=== PATIENT | female | born 1985 | race African-American/Black ===

== ENCOUNTER 2017-02-20 12:53 | Emergency (ER) | payer OTHER ==
[2017-02-20 13:42] LABS: #Basophils 0.1 thou/uL (0.0-0.2); #Eosinphils 0.1 thou/uL (0.0-0.7); #Lymphocytes 1.8 thou/uL (1.20-3.40); #Monocytes 0.3 thou/uL (0.11-0.59); #Neutrophils 2.8 thou/uL (1.40-6.50); %Basophils 1.4 % (0.0-1.0); %Eosinophils 1.8 % (0.0-10.0); %Lymphocytes 35.3 % (21.0-51.0); %Monocytes 6.8 % (0.0-10.0); Hematocrit 37.3 % (36.0-47.0); Mean Platelet Volume 7.8 fL (7.4-10.4); Red Blood Cell (RBC) Count 3.71 mill/uL (4.20-5.40)
[2017-02-20 14:05] LABS: ALT (SGPT) 31 U/L (8-55); AST (SGOT) 22 U/L (5-34); Alkaline Phosphatase 115 U/L (40-150); Anion Gap 11 mmol/L (10-20); BUN (Urea Nitrogen) 13 mg/dL (7.0-18.7); Bilirubin, Total 0.4 mg/dL (0.2-1.2); CK (CPK) 126 U/L (29-168); Calc. Creatinine Clearance 0 mL/min (70-130); Calcium 9.2 mg/dL (7.8-10.44); Carbon Dioxide 25 mmol/L (22-29); Chloride 105 mmol/L (98-107); Estimated GFR-MDRD Greater than 90; Globulin 3.4 g/dL (2.4-3.5); Lipase 46 U/L (8-78); Protein, Total 7.5 g/dL (6.0-8.3)
[2017-02-20 14:09] LABS: Troponin I Less than 0.010 ng/mL (< 0.028)
--- NOTE | 2017-02-20 14:59 | RAD ---
PORTABLE AP CHEST: Date: 02-20-17 History: Intermittent chest pain for two weeks. Right ear pain. FINDINGS: Cardiac silhouette and pulmonary vasculature are within normal limits for the portable technique of t he study. The lungs are clear. Osseous structures are intact. IMPRESSION: No acute cardiopulmonary process. POS: [facility]
== END 2017-02-20 14:19 | disposition home or self-care (01) ==
LOC: ERS 12:53
DX: R09.1 Pleurisy (principal)
CPT/HCPCS: 36415; 71010; 80053; 82550; 82553; 83690; 84484; 85025; 93005

== ENCOUNTER 2017-08-21 12:24 | Emergency (ER) | payer OTHER ==
[2017-08-21 13:15] LABS: #Lymphocytes 2.4 thou/uL (1.20-3.40); #Monocytes 0.5 thou/uL (0.11-0.59); #Neutrophils 2.2 thou/uL (1.40-6.50); %Basophils 0.9 % (0.0-1.0); %Eosinophils 0.8 % (0.0-10.0); %Lymphocytes 46.2 % (21.0-51.0); %Monocytes 9.2 % (0.0-10.0); %Neutrophils 42.8 % (42.0-75.0); Hemoglobin 12.6 g/dL (12.0-16.0); Mean Corpuscular HGB CONC 32.9 g/dL (32.0-36.0); Mean Corpuscular Hemoglobin 32.4 pg (27.0-31.0); Mean Corpuscular Volume 98.6 fl (81.0-99.0); Mean Platelet Volume 8.1 fL (7.4-10.4); Platelet Count 260 thou/uL (130-400); RBC Distribution Width 11.4 % (11.5-14.5); Red Blood Cell (RBC) Count 3.87 mill/uL (4.20-5.40); White Blood Cell (WBC) Count 5.1 thou/uL (4.8-10.8)
[2017-08-21 13:43] LABS: CKMB 0.8 ng/mL (0-6.6); Troponin I Less than 0.010 ng/mL (< 0.028)
[2017-08-21 13:44] LABS: ALT (SGPT) 35 U/L (8-55); AST (SGOT) 32 U/L (5-34); Albumin 4.4 g/dL (3.5-5.0); Alkaline Phosphatase 102 U/L (40-150); Anion Gap 11 mmol/L (10-20); BUN (Urea Nitrogen) 10 mg/dL (7.0-18.7); Bilirubin, Total 0.4 mg/dL (0.2-1.2); Calc. Creatinine Clearance 0 mL/min (70-130); Calcium 9.3 mg/dL (7.8-10.44); Carbon Dioxide 23 mmol/L (22-29); Chloride 105 mmol/L (98-107); Estimated GFR-MDRD Greater than 90; Globulin 3.2 g/dL (2.4-3.5); Glucose 94 mg/dL (70-105); Potassium 4.1 mmol/L (3.5-5.1); Protein, Total 7.6 g/dL (6.0-8.3); Sodium 135 mmol/L (136-145)
--- NOTE | 2017-08-21 14:08 | RAD ---
SINGLE VIEW OF THE CHEST: COMPARISON: 02/20/17. HISTORY: Shortness of breath for 9 days and chest pain. FINDINGS: Single view of the chest shows a normal sized cardiomediastinal silhouette. There is no evidence of c onsolidation, mass, or pleural effusion. The bones are unremarkable. IMPRESSION: No evidence of acute cardiopulmonary disease. POS: [facility]
== END 2017-08-21 14:43 | disposition home or self-care (01) ==
LOC: ERS 12:24
DX: R07.89 Other chest pain (principal)
CPT/HCPCS: 36415; 71045; 80053; 82553; 84484; 85025; 93005

== ENCOUNTER 2019-11-15 16:20 | Emergency (ER) | payer OTHER ==
[2019-11-15 17:03] LABS: #Basophils 0.1 thou/uL (0.0-0.2); #Lymphocytes 1.4 thou/uL (1.20-3.40); #Monocytes 0.3 thou/uL (0.11-0.59); #Neutrophils 3.9 thou/uL (1.40-6.50); %Basophils 0.9 % (0.0-1.0); %Eosinophils 0.2 % (0.0-10.0); %Lymphocytes 24.7 % (21.0-51.0); %Neutrophils 68.2 % (42.0-75.0); Hemoglobin 12.6 g/dL (12.0-16.0); Mean Corpuscular HGB CONC 34.4 g/dL (32.0-36.0); Mean Corpuscular Hemoglobin 33.8 pg (27.0-31.0); Mean Corpuscular Volume 98.4 fL (78.0-98.0); Mean Platelet Volume 8.8 fL (7.4-10.4); Platelet Count 267 thou/uL (130-400); Red Blood Cell (RBC) Count 3.71 mill/uL (4.20-5.40); White Blood Cell (WBC) Count 5.7 thou/uL (4.8-10.8)
[2019-11-15 17:22] LABS: ALT (SGPT) 17 U/L (8-55); AST (SGOT) 17 U/L (5-34); Albumin 4.3 g/dL (3.5-5.0); Alkaline Phosphatase 91 U/L (40-110); Anion Gap 14 mmol/L (10-20); BUN (Urea Nitrogen) 8 mg/dL (7.0-18.7); Bilirubin, Total 0.3 mg/dL (0.2-1.2); Calc. Creatinine Clearance 0 mL/min (70-130); Calcium 9.3 mg/dL (7.8-10.44); Carbon Dioxide 20 mmol/L (22-29); Chloride 103 mmol/L (98-107); Estimated GFR-MDRD Greater than 90; Globulin 3.4 g/dL (2.4-3.5); Glucose 89 mg/dL (70-105); Potassium 3.7 mmol/L (3.5-5.1); Protein, Total 7.7 g/dL (6.0-8.3); Sodium 133 mmol/L (136-145)
--- NOTE | 2019-11-15 17:50 | ULT ---
EXAM: Pelvic ultrasound HISTORY: Pelvic pain and cramping in a female COMPARISON: 10/22/2019 TECHNIQUE: Multiple grayscale and color Doppler images were obtained in a transabdominal pelvic ultra sound. Spectral analysis of the Doppler waveforms of the ovaries were performed. FINDINGS: UTERUS: There is an intrauterine gestational sac. This contains a yolk sac and pole. [place]-rump length: 6.26 cm which estimates gestational age at 12 weeks 5 days. A heart rate is detected at 160 bpm. There may be a very small area of subchorionic hemorrhage. There appears to be a 1.3 cm fibroid within the uterus. No free fluid is seen in the pelvis. RIGHT OVARY: Normal flow without focal mass. A corpus luteum cyst is seen in the right ovary measurin g 2.5 cm in size. LEFT OVARY: Not visualized IMPRESSION: 1. Single live intrauterine with estimated age of 12 weeks 5 days. 2. Possible small subchorionic hemorrhage . 3. Possible uterine fibroid
[2019-11-15 18:57] LABS: Bilirubin Negative (Negative); Blood, Urine Negative (Negative); Clarity Turbid (Clear); Glucose, Urine (Dipstick) Normal (Negative); Ketone, Urine 20 mg/dL (Negative); Leukocyte 250 Leu/uL (Negative); Nitrite Negative (Negative); Protein, Urine (Dipstick) Negative (Neg-Trace); RBC/HPF 0-3 HPF (0-3); Urobilinogen Normal mg/dL (Less than 2); pH, Urine 5.5 (5.0-9.0)
[2019-11-15 19:04] LABS: Bacteria/HPF 2+ HPF (None Seen)
== END 2019-11-15 19:20 | disposition home or self-care (01) ==
LOC: ERS 16:20
DX: O99.89 Other specified diseases and conditions complicating pregnancy, childbirth and the puerperium (principal); R10.9 Unspecified abdominal pain; Z3A.12 12 weeks gestation of pregnancy
CPT/HCPCS: 36415; 76856; 80053; 81003; 81015; 84702; 85025; 86900; 86901; 93976

== ENCOUNTER 2020-07-14 13:05 | Emergency (ER) | payer OTHER | END 2020-07-14 15:20 | disposition left against medical advice (07) | LOC: ERS 13:05 | DX: Z53.21 Procedure and treatment not carried out due to patient leaving prior to being seen by health care provider (principal) ==

== ENCOUNTER 2020-08-05 10:28 | Emergency (ER) | payer OTHER ==
[2020-08-05 11:01] LABS: #Lymphocytes 2.1 thou/uL (1.20-3.40); #Monocytes 0.3 thou/uL (0.11-0.59); #Neutrophils 1.8 thou/uL (1.40-6.50); %Basophils 1.1 % (0.0-1.0); %Lymphocytes 48.5 % (21.0-51.0); %Monocytes 7.5 % (0.0-10.0); %Neutrophils 41.9 % (42.0-75.0); Hemoglobin 12.1 g/dL (12.0-16.0); Mean Corpuscular HGB CONC 33.5 g/dL (32.0-36.0); Mean Corpuscular Volume 98.7 fL (78.0-98.0); Mean Platelet Volume 8.6 fL (7.4-10.4); Platelet Count 279 thou/uL (130-400); RBC Distribution Width 11.4 % (11.5-14.5); Red Blood Cell (RBC) Count 3.65 mill/uL (4.20-5.40); White Blood Cell (WBC) Count 4.2 thou/uL (4.8-10.8)
[2020-08-05 11:22] LABS: Bilirubin Negative (Negative); Blood, Urine Negative (Negative); Clarity Clear (Clear); Glucose, Urine (Dipstick) Normal (Negative); Ketone, Urine Negative (Negative); Leukocyte Negative Leu/uL (Negative); Nitrite Negative (Negative); Protein, Urine (Dipstick) Negative (Neg-Trace); Specific Gravity, Urine 1.013 (1.002-1.036); Urobilinogen Normal mg/dL (Less than 2); pH, Urine 6.5 (5.0-9.0)
[2020-08-05 11:22] LABS: ALT (SGPT) 47 U/L (8-55); AST (SGOT) 27 U/L (5-34); Albumin 4.6 g/dL (3.5-5.0); Alkaline Phosphatase 136 U/L (40-110); Anion Gap 13 mmol/L (10-20); BUN (Urea Nitrogen) 7 mg/dL (7.0-18.7); Bilirubin, Total 0.6 mg/dL (0.2-1.2); Calc. Creatinine Clearance 0 mL/min (70-130); Calcium 9.6 mg/dL (7.8-10.44); Carbon Dioxide 22 mmol/L (22-29); Chloride 103 mmol/L (98-107); Globulin 3.2 g/dL (2.4-3.5); Glucose 88 mg/dL (70-105); Potassium 3.9 mmol/L (3.5-5.1); Protein, Total 7.8 g/dL (6.0-8.3); Sodium 134 mmol/L (136-145)
== END 2020-08-05 12:55 | disposition home or self-care (01) ==
LOC: ERS 10:28
DX: O99.891 Other specified diseases and conditions complicating pregnancy (principal); R10.31 Right lower quadrant pain; Z3A.01 Less than 8 weeks gestation of pregnancy
CPT/HCPCS: 76856; 80053; 81003; 84702; 85025; 93976

== ENCOUNTER 2020-08-17 15:40 | Emergency (ER) | payer OTHER ==
[2020-08-17 17:33] LABS: Bilirubin Negative (Negative); Blood, Urine Negative (Negative); Clarity Clear (Clear); Glucose, Urine (Dipstick) Normal (Negative); Ketone, Urine 60 mg/dL (Negative); Leukocyte Negative Leu/uL (Negative); Nitrite Negative (Negative); Protein, Urine (Dipstick) 10 mg/dL (Neg-Trace); Specific Gravity, Urine 1.025 (1.002-1.036); Urobilinogen Normal mg/dL (Less than 2)
== END 2020-08-17 17:56 | disposition home or self-care (01) ==
LOC: ERS 15:40
DX: O20.0 Threatened abortion (principal); O99.281 Endocrine, nutritional and metabolic diseases complicating pregnancy, first trimester; E86.0 Dehydration; Z3A.08 8 weeks gestation of pregnancy
CPT/HCPCS: 36415; 81003; 84702; 99284

== ENCOUNTER 2020-09-03 11:50 | Outpatient (CLI) | payer OTHER | END 2020-09-03 11:51 | disposition home or self-care (01) | LOC: DTY/OP 11:50 | PROVIDERS: ATTEND Family Medicine | DX: O99.210 Obesity complicating pregnancy, unspecified trimester (principal); E66.9 Obesity, unspecified; Z3A.09 9 weeks gestation of pregnancy; Z86.32 Personal history of gestational diabetes | CPT/HCPCS: 97802 ==

== ENCOUNTER 2021-08-21 09:40 | Emergency (ER) | payer OTHER | END 2021-08-21 11:29 | disposition home or self-care (01) | LOC: ERS 09:40 | DX: O99.891 Other specified diseases and conditions complicating pregnancy (principal); Z3A.16 16 weeks gestation of pregnancy | CPT/HCPCS: 76815 ==

== ENCOUNTER 2023-10-08 14:25 | Emergency (ER) | payer OTHER ==
[2023-10-08 15:24] LABS: Bilirubin Negative (Negative); Blood, Urine Negative (Negative); CAUTI Indications for Culture Pelvic or flank pain; Clarity Clear (Clear); Glucose, Urine (Dipstick) Normal (Negative); Ketone, Urine Negative (Negative); Leukocyte 75 Leu/uL (Negative); Nitrite Negative (Negative); Protein, Urine (Dipstick) Negative (Neg-Trace); RBC/HPF 0-3 HPF (0-3); Specific Gravity, Urine 1.022 (1.002-1.036); Squamous Epithelial 0-3 HPF (0-3)
[2023-10-08 15:25] LABS: Bacteria/HPF Rare-Few HPF (None Seen)
[2023-10-08 15:26] LABS: Urine Culture Reflex No No
[2023-10-08 15:26] LABS: #Basophils 0.03 10x3/uL (0.0-0.2); %Basophils 0.6 % (0.0-1.0); %Eosinophils 1.1 % (0.0-10.0); %Lymphocytes 28.9 % (21.0-51.0); %Monocytes 8.7 % (0.0-10.0); %Neutrophils 60.3 % (42.0-75.0); Hematocrit 36.2 % (36.0-47.0); Mean Corpuscular HGB CONC 33.1 g/dL (32.0-36.0); Mean Corpuscular Hemoglobin 32.4 pg (27.0-31.0); Mean Corpuscular Volume 97.8 fL (78.0-98.0); Mean Platelet Volume 11.1 fL (7.4-10.4); Platelet Count 264 10x3/uL (130-400)
[2023-10-08 15:42] LABS: ALT (SGPT) 37 U/L (8-55); AST (SGOT) 23 U/L (5-34); Albumin 3.9 g/dL (3.5-5.0); Alkaline Phosphatase 174 U/L (40-110); Anion Gap 12 mmol/L (10-20); BUN (Urea Nitrogen) 9 mg/dL (7.0-18.7); Bilirubin, Total 0.4 mg/dL (0.2-1.2); Calc. Creatinine Clearance 0 mL/min (70-130); Calcium 10.1 mg/dL (7.8-10.44); Carbon Dioxide 22 mmol/L (22-29); Chloride 102 mmol/L (98-107); Estimated GFR 115; Glucose 82 mg/dL (70-105); Lipase 12 U/L (8-78); Protein, Total 7.9 g/dL (6.0-8.3); Sodium 132 mmol/L (136-145)
== END 2023-10-08 18:07 | disposition home or self-care (01) ==
LOC: ERS 14:25
DX: O30.001 Twin pregnancy, unspecified number of placenta and unspecified number of amniotic sacs, first trimester (principal); O99.891 Other specified diseases and conditions complicating pregnancy; R82.71 Bacteriuria; R10.9 Unspecified abdominal pain; O09.511 Supervision of elderly primigravida, first trimester; Z3A.09 9 weeks gestation of pregnancy
CPT/HCPCS: 36415; 76856; 80053; 81001; 83690; 84702; 85025; 86900; 86901; 87086